=== PATIENT | male | born 1995 | race Caucasian/White ===

== ENCOUNTER 2019-01-30 12:37 | Emergency (ER) | payer OTHER ==
--- NOTE | 2019-01-30 13:22 | C.PDOC ---
History Of Present Illness 23 y/o male brought to ER by ambulance for evaluation of laceration to left upper lip. Patient states that he was working on a car and he was fixing one of the springs when it sprung out of the car and hit him on his upper lip. Patient thinks he had LOC and does not remember what happened after the incident. He is unsure about whether he had a head injury. He notes that there were no witnesses present at the time. He rates the pain 8/10 and he states that he has associated headache. Denies having CP, SOB, weakness, dizziness, nausea, and vomiting - HPI Time Seen by Provider: 01/30/19 13:12 Chief Complaint (Nursing): Trauma History Per: Patient History/Exam Limitations: no limitations Onset/Duration Of Symptoms: Hrs Severity: Moderate Past Medical History Reviewed: Historical Data, Nursing Documentation, Vital Signs - Medical History PMH: No Chronic Diseases Surgical History: No Surg Hx Family History: States: No Known Family Hx - Social History Hx Alcohol Use: No Hx Substance Use: No Review Of Systems Cardiovascular: Negative for: Chest Pain Respiratory: Negative for: Shortness of Breath Gastrointestinal: Negative for: Nausea, Vomiting Skin: Positive for: Other (laceration to left upper lip) Physical Exam - Physical Exam Appears: Non-toxic, No Acute Distress Skin: Normal Color, Warm, Dry Head: Normacephalic, No Tenderness Eye(s): bilateral: Normal Inspection, PERRL Ear(s): Bilateral: Normal Nose: Normal Oral Mucosa: Moist Tongue: Normal Appearing Lips: Laceration (approximately 2 cm irregular laceration to left upper lip that crosses the vermilion border, extends into inner lip, slight bleeding ) Neck: Normal ROM, Supple Chest: Symmetrical Cardiovascular: Rhythm Regular Respiratory: Normal Breath Sounds, No Rales, No Rhonchi, No Wheezing Gastrointestinal/Abdominal: Soft, No Tenderness Extremity: Bilateral: Atraumatic Neurological/Psych: Oriented x3, Normal Speech, Normal Cognition, Normal Motor, Normal Sensation Gait: Steady ED Course And Treatment - Laboratory Results Result Diagrams: 01/30/19 13:57 01/30/19 13:57 - CT Scan/US CT-Head Other Rad Studies (CT/US): Read By Radiologist, Radiology Report Reviewed CT/US Interpretation: Date of service: 01/30/2019. PROCEDURE: CT HEAD WITHOUT CONTRAST. HISTORY: s/p trauma. COMPARISON: None available. TECHNIQUE: Axial computed tomography images were obtained through the head/brain without intravenous contrast. Radiation dose: Total exam DLP = 1138.37 mGy-cm. This CT exam was performed using one or more of the following dose reduction techniques: Automated exposure control, adjustment of the mA and/or kV according to patient size, and/or use of iterative reconstruction technique. FINDINGS: HEMORRHAGE: No intracranial hemorrhage. BRAIN: No mass effect or edema. No atrophy or chronic microvascular ischemic changes. VENTRICLES: No hydroc ephalus. CALVARIUM: Unremarkable. PARANASAL SINUSES: Unremarkable as visualized. No significant inflammatory changes. MASTOID AIR CELLS: Unremarkable as visualized. No inflammatory changes. OTHER FINDINGS: None. IMPRESSION: No acute intracranial pathology identified. CT-Maxillofacial Other Rad Studies (CT/US): Read By Radiologist, Radiology Report Reviewed CT/US Interpretation: Date of service: 01/30/2019. CT maxillofacial bones without IV contrast. Indication: s/p trauma. Comparison: Noncontrast head CT performed the same day. Technique: Axial computed tomography images were obtained of the maxillofacial bones without the use of intravenous contrast. Coronal and sagittal reformatted images were generated and reviewed. This CT exam was performed using 1 or more of the following dose reduction techniques: Automated exposure control, adjustment of the MAA and/or kV according to patient size, and/or use of iterative reconstruction technique. Radiation dose: Total exam DLP = 810.89 mGy-cm. Findings: The facial bones appear intact without acute displaced fracture. The orbits appear unremarkable. The temporoman dibular joints appear located. The mastoid air cells appear clear. Small fluid and mucosal thickening involving the left maxillary sinus. Small mucosal polyps/cysts involving the right maxillary sinus. Mild mucosal thickening fo the ethmoid air cells. The paranasal sinuses appear otherwise clear. Nasal septum is deviated to the left. The visualized brain appears unremarkable. The soft tissues appear unremarkable. Impression: No acute posttraumatic pathology identified. Small fluid and mucosal thickening involving the left maxillary sinus. Small mucosal polyps/cysts involving the right maxillary sinus. Mild mucosal thickening fo the ethmoid air cells. Correlate clinically for s inusitis. CT-Cervical Spine Other Rad Studies (CT/US): Read By Radiologist, Radiology Report Reviewed CT/US Interpretation: Date of service: 01/30/2019. CT cervical spine without IV contrast. Indication: s/p trauma. Comparison: None available. Technique: Axial computed tomography images were obtained of the cervical spine without the use of intravenous contrast. Coronal and sagittal reformatted images were created and reviewed. This CT exam was performed using 1 or more of the following dose reduction techniques: Automated exposure control, adjustment of the MAA and/or kV according to patient size, and/or use of iterative reconstr uction technique. Radiation dose: Total exam DLP = 593.61 mGy-cm. Findings: Straightening of the normal cervical lordosis may be related to muscle spasm or positioning. There is no evidence of acute fracture or subluxation. There is preserved alignment, vertebral body height, intervertebral disc spaces. The prevertebral soft tissues and spinolaminar lines appear intact. The lateral masses are preserved. The dens tip is intact. There is proper alignment of the lateral masses of C1 with the C2 vertebral body. Small fluid noted within the right mastoid air cells. The left mastoid air cells appear clear. Included portions of the thyroid gland appear unremarkable. Included portions of lung apices appear clear. Impression: Straightening of the normal cervical lordosis may be related to muscle spasm or positioning. No evidence of acute fracture or subluxation. Small fluid within the right mastoid air cells. Laceration - Laceration Repair Upper Lip Wound Length (In cm): 2 cm Description Of Wound: Irregular (jagged, crosses the vermilion border) Wound Cleansed With: Betadine, Sterile Saline Anesthesia: Lidocaine 2%, With Epi Wound Examination: Irrigated With Saline, No FB With Wound Exploration Wound Closure: Suture Suture Technique And Material Used: Nylon (7 (-5-0 sutures)) Wound Complexity: Complex Disposition Counseled Patient/Family Regarding: Studies Performed, Diagnosis, Need For Followup, Rx Given - Disposition Referrals: [facility] [Outside] Disposition: HOME/ ROUTINE Disposition Time: 16:02 Condition: STABLE Additional Instructions: Continue Clindamycin 4 times a day for 7 days Tylenol q4-6 hrs for pain Return to ED in 7 days for suture removal Prescriptions: Acetaminophen [Tylenol] 650 mg PO TID #30 capsule Clindamycin [Cleocin] 150 mg PO QID #28 cap Instructions: Wound Care (DC), Closed Head Injury (DC), Laceration Repair With Stitches (DC) Forms: [facility] (Portuguese), Work Excuse - Clinical Impression Clinical Impression: Laceration of lip, Head injury due to trauma - PA / BIOTECHNICIAN / Resident Statement MD/DO has reviewed & agrees with the documentation as recorded. - Scribe Statement The provider has reviewed the documentation as recorded by the Scribe Sterling Chand Provider Attestation All medical record entries made by the Scribe were at my direction and personally dictated by me. I have reviewed the chart and agree that the record accurately reflects my personal performance of the history, physical exam, medical decision making, and the department course for this patient. I have also personally directed, reviewed, and agree with the discharge instructions and disposition.
[2019-01-30] MEDS ORDERED: Tetanus/Diphtheria Toxoids 0.5 ml Syringe IM ONE ×2 (13:27→13:36)
[2019-01-30] MEDS ORDERED: Clindamycin 300 MG in Sodium Chloride 0.9% 50 ML IVPB STA (13:30)
[2019-01-30] MEDS ORDERED: Morphine 4 MG/ML VIAL ONE (13:37)
[2019-01-30] MEDS ORDERED: Clindamycin 600mg/50ml NS 600 MG/50 ML BAG IVPB ONE (13:37)
[2019-01-30 14:02] LABS: BASO % 0.5 % (0.0-2.0); EOS # 0.1 K/uL (0.0-0.7); HEMOGLOBIN 15.7 g/dL (12.0-18.0); LYMPH # 2.1 K/uL (1.0-4.3); LYMPH % 30.9 % (20.0-40.0); MEAN CELL VOLUME 89.1 fL (80.0-94.0); MEAN CORPUSCULAR HEMOGLOBIN 28.7 pg (27.0-31.0); MEAN CORPUSCULAR HGB CONC 32.2 g/dL (33.0-37.0); MEAN PLATELET VOLUME 9.2 fL (7.2-11.7); MONO # 0.6 K/uL (0.0-0.8); MONO % 9.1 % (0.0-10.0); NEUT # 3.9 K/uL (1.8-7.0); NEUT % 57.5 % (50.0-75.0); NRBC % 0.1 % (0.0-2.0); RBC 5.47 Mil/uL (4.40-5.90); WHITE BLOOD COUNT 6.8 K/uL (4.8-10.8)
[2019-01-30] MEDS ORDERED: Lidocaine 2% PF (10 ml) Amp EPI STA (14:07)
--- NOTE | 2019-01-30 14:12 | CT ---
Date of service: 01/30/2019 PROCEDURE: CT HEAD WITHOUT CONTRAST. HISTORY: s/p trauma COMPARISON: None available. TECHNIQUE: Axial computed tomography images were obtained through the head/brain without intravenous contrast. Radiation dose: Total exam DLP = 1138.37 mGy-cm. This CT exam was performed using one or more of the following dose reduction techniques: Automated exposure control, adjustment of the mA and/or kV according to patient size, and/or use of iterative reconstruction technique. FINDINGS: HEMORRHAGE: No intracranial hemorrhage. BRAIN: No mass effect or edema. No atrophy or chronic microvascular ischemic changes. VENTRICLES: No hydrocephalus. CALVARIUM: Unremarkable. PARANASAL SINUSES: Unremarkable as visualized. No significant inflammatory changes. MASTOID AIR CELLS: Unremarkable as visualized. No inflammatory changes. OTHER FINDINGS: None. IMPRESSION: No acute intracranial pathology identified.
[2019-01-30 14:14] LABS: ALB/GLOB RATIO 1.6 (1.0-2.1); ALBUMIN 4.5 g/dL (3.5-5.0); ALT/SGPT 28 U/L (21-72); AST/SGOT 31 U/L (17-59); BLOOD UREA NITROGEN 12 mg/dL (9-20); CALCIUM 9.2 mg/dl (8.6-10.4); GFR NON-AFRICAN AMERICAN > 60
--- NOTE | 2019-01-30 14:26 | CT ---
Date of service: 01/30/2019 CT maxillofacial bones without IV contrast Indication: s/p trauma Comparison: Noncontrast head CT performed the same day Technique: Axial computed tomography images were obtained of the maxillofacial bones without the use of intravenous contrast. Coronal and sagittal reformatted images were generated and reviewed. This CT exam was performed using 1 or more of the following dose reduction techniques: Automated exposure control, adjustment of the MAA and/or kV according to patient size, and/or use of iterative reconstruction technique. Radiation dose: Total exam DLP = 810.89 mGy-cm. Findings: The facial bones appear intact without acute displaced fracture. The orbits appear unremarkable. The temporomandibular joints appear located. The mastoid air cells appear clear. Small fluid and mucosal thickening involving the left maxillary sinus. Small mucosal polyps/cysts involving the right maxillary sinus. Mild mucosal thickening fo the ethmoid air cells. The paranasal sinuses appear otherwise clear. Nasal septum is deviated to the left. The visualized brain appears unremarkable. The soft tissues appear unremarkable. Impression: No acute posttraumatic pathology identified. Small fluid and mucosal thickening involving the left maxillary sinus. Small mucosal polyps/cysts involving the right maxillary sinus. Mild mucosal thickening fo the ethmoid air cells. Correlate clinically for sinusitis.
--- NOTE | 2019-01-30 14:33 | CT ---
Date of service: 01/30/2019 CT cervical spine without IV contrast Indication: s/p trauma Comparison: None available. Technique: Axial computed tomography images were obtained of the cervical spine without the use of intravenous contrast. Coronal and sagittal reformatted images were created and reviewed. This CT exam was performed using 1 or more of the following dose reduction techniques: Automated exposure control, adjustment of the MAA and/or kV according to patient size, and/or use of iterative reconstruction technique. Radiation dose: Total exam DLP = 593.61 mGy-cm. Findings: Straightening of the normal cervical lordosis may be related to muscle spasm or positioning. There is no evidence of acute fracture or subluxation. There is preserved alignment, vertebral body height, intervertebral disc spaces. The prevertebral soft tissues and spinolaminar lines appear intact. The lateral masses are preserved. The dens tip is intact. There is proper alignment of the lateral masses of C1 with the C2 vertebral body. Small fluid noted within the right mastoid air cells. The left mastoid air cells appear clear. Included portions of the thyroid gland appear unremarkable. Included portions of lung apices appear clear. Impression: Straightening of the normal cervical lordosis may be related to muscle spasm or positioning. No evidence of acute fracture or subluxation. Small fluid within the right mastoid air cells.
[2019-01-30] MEDS ORDERED: Lidocaine Hydrochloride 0 ML INJ ONE (15:17)
[2019-01-30] MEDS ORDERED: Lidocaine 2% w Epi 1:100,000 Inj IJ ONE (15:22)
[2019-01-30 16:01] VITALS: BP 144/85; PULSE 67; RESP 18; TEMP 99.8; O2SAT 98
[2019-01-30] MEDS ORDERED: Morphine 4 MG/ML VIAL IV ONE (16:01)
[2019-01-30] MEDS ORDERED: Oxycodone/Acetaminophen 5/325 mg Tab PO STA (16:13)
[2019-01-30] MEDS ORDERED: Oxycodone/Acetaminophen 5/325 mg Tab ONE (16:18)
== END 2019-01-30 16:21 | disposition home or self-care (01) ==
LOC: C.ER 12:37
DX: S01.511A Laceration without foreign body of lip, initial encounter (principal); S09.90XA Unspecified injury of head, initial encounter; W22.8XXA Striking against or struck by other objects, initial encounter; Z23 Encounter for immunization
CPT/HCPCS: 12011; 70450; 70486; 72125; 80053; 85025; 90471; 90714; 96374; 99284; J2270

== ENCOUNTER 2019-02-06 08:37 | Emergency (ER) | payer OTHER ==
[2019-02-06 08:55] VITALS: O2SAT 99
--- NOTE | 2019-02-06 09:18 | C.PDOC ---
History Of Present Illness 23 year old male presents to ED for suture removal. Patient had a a left upper lip laceration that occurred on 01/30/19. Patient has 7 sutures of 5:0 nylon placed. Patient denies fever, redness, swelling, bleeding, numbness, or weakness. Time Seen by Provider: 02/06/19 09:15 Chief Complaint (Nursing): Wound Check History Per: Patient History/Exam Limitations: no limitations Onset/Duration Of Symptoms: Laceration (suture removal) Location Of Injury: Left: Mouth (upper lip) Past Medical History Reviewed: Historical Data, Nursing Documentation, Vital Signs Vital Signs: Last Vital Signs Temp 97.5 F L 02/06/19 08:49 Pulse 80 02/06/19 08:49 Resp 18 02/06/19 08:49 BP 128/87 02/06/19 08:49 Pulse Ox 99 02/06/19 08:49 - Medical History PMH: No Chronic Diseases Surgical History: No Surg Hx Family History: States: Unknown Family Hx - Social History Hx Alcohol Use: Yes Hx Substance Use: Yes (once a week) - Immunization History Hx Tetanus Toxoid Vaccination: No Hx Influenza Vaccination: No Hx Pneumococcal Vaccination: No Review Of Systems Constitutional: Negative for: Fever, Chills, Weakness ENT: Negative for: Mouth Pain, Mouth Swelling Neurological: Negative for: Weakness, Numbness, Dizziness Physical Exam - Physical Exam Appears: Well, Non-toxic, No Acute Distress Skin: Normal Color, Warm, Dry Head: Atraumatic, Normacephalic Lips: Laceration (nicely healed left upper lip laceration) ED Course And Treatment O2 Sat by Pulse Oximetry: 99 Progress Note: Procedure: 7 sutures of 5:0 Nylon removed from the left upper lip. Patient tolerated well. Re-evaluation. Discussed plan with patient who expresses understanding. All questions answered and there is agreement with the plan to discharge home with instructions. Patient stable for discharge. Return if symptoms persist or worsen. Medical Decision Making Medical Decision Making: suture removal of 5-0 nylon x#7 sutures from L upper lip healing nicely good abx compliance no s/s of infection continued wound care educated Disposition Doctor Will See Patient In The: Office Counseled Patient/Family Regarding: Studies Performed, Diagnosis - Disposition [facility] [Outside] 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 Instructions: Stitches Removal Forms: [facility] (Amharic), Work Excuse - Clinical Impression Clinical Impression: Visit for suture removal - Scribe Statement The provider has reviewed the documentation as recorded by the Scribe (Araseli Spence) All medical record entries made by the Scribe were at my direction and personally dictated by me. I have reviewed the chart and agree that the record accurately reflects my personal performance of the history, physical exam, medical decision making, and the department course for this patient. I have also personally directed, reviewed, and agree with the discharge instructions and disposition.
[2019-02-06 09:51] VITALS: BP 131/86; PULSE 71; RESP 20; TEMP 98.5
== END 2019-02-06 10:03 | disposition home or self-care (01) ==
LOC: C.ER 08:37
DX: Z48.02 Encounter for removal of sutures (principal)